=== PATIENT | female | born 1975 | race American Indian/Alaskan Native ===

== ENCOUNTER 2017-07-24 20:17 | Emergency (ER) | payer OTHER ==
[2017-07-24 21:20] LABS: Basophils % (Auto) 0.5 % (0.0-1.8); Hematocrit 33.4 % (30.3-42.9); Hemoglobin 11.1 gm/dl (10.1-14.3); Mean Corpuscular HGB Conc 33 % (30-34); Mean Corpuscular Hemoglobin 30 pg (28-32); Mean Corpuscular Volume 89 fl (79-97); Platelet Count 227 K/mm3 (140-440); Red Blood Count 3.77 M/mm3 (3.65-5.03); Red Cell Distribution Width 14.6 % (13.2-15.2); White Blood Count 6.1 K/mm3 (4.5-11.0)
[2017-07-24 21:37] LABS: Alanine Aminotransferase 12 units/L (7-56); Albumin/Globulin Ratio 1.2 %; Alkaline Phosphatase 45 units/L (35-129); Anion Gap 18 mmol/L; BUN/Creatinine Ratio 13; Blood Urea Nitrogen 9 mg/dL (7-17); Calcium 8.6 mg/dL (8.4-10.2); Carbon Dioxide 23 mmol/L (22-30); Glucose 98 mg/dL (65-100); Potassium 3.4 mmol/L (3.6-5.0); Sodium 140 mmol/L (137-145); Total Protein 7.3 g/dL (6.3-8.2)
[2017-07-25] MEDS ORDERED: K-DUR PO ONE (01:59)
[2017-07-25] MEDS ORDERED: TORADOL IM ONE (01:59)
[2017-07-25 02:13] VITALS: BP 142/85
--- NOTE | 2017-07-25 02:26 | Emergency Department Report ---
ED Female HPI - General Chief complaint: Vaginal Bleeding Stated complaint: VAG BLEED Time Seen by Provider: 07/25/17 01:45 Source: patient Mode of arrival: Ambulatory Limitations: No Limitations - History of Present Illness Initial comments: 42-year-old female with a past medical history previous cholecystectomy presents to the hospital pending the vaginal bleeding 2 months that worsened today. Patient has had vaginal bleeding daily for the past 3 months and saw her [facility] who suggested it was stress-related. She has not had any imaging done. At 3 PM vaginal bleeding worsened with large clots. Patient explored the patient and greater than 10 pads. She is complaining of significant suprapubic cramping pain that radiated to the back. Pain has since improved. Bleeding has slowed down some. Patient felt lightheaded earlier but that has since resolved. No reports of syncope. Patient states she has a previous history of hypertension but all commands 4 years since she lost weight. Her [facility] doctor is associated with [facility] - Related Data Previous Rx's Medication Instructions Recorded Last Taken Type Ibuprofen [Motrin] 800 mg PO Q8HR PRN #30 tablet 07/25/17 Unknown Rx medroxyPROGESTERone ACETATE 10 mg PO QDAY #7 tablet 07/25/17 Unknown Rx [Provera] Allergies Allergy/AdvReac Type Severity Reaction Status Date / Time amoxicillin Allergy Swelling Verified 07/24/17 20:39 codeine Allergy Vomiting Verified 07/24/17 20:39 ED Review of Systems ROS: Stated complaint: VAG BLEED Other details as noted in HPI Comment: All other systems reviewed and negative Other: Constitutional: No fevers chills Eyes: No eye pain visual changes ENT: No ear pain or throat pain Neck: Denies pain Respiratory: Denies cough wheezing shortness of breath Cardiovascular: Denies chest pain, palpitations, syncope GI: as per hpi : Denies dysuria Musculoskeletal: Denies back pain, joint swelling Skin: Denies rash, lesions, erythema Neurologic: Denies headache, numbness, weakness Psychiatric: Denies suicidal ideation, hallucinations ED Past Medical Hx - Past Medical History Previous Medical History?: No - Surgical History Past Surgical History?: Yes Hx Cholecystectomy: Yes Additional Surgical History: C-Sec x 2 - Social History Smoking Status: Never Smoker Substance Use Type: None - Medications Home Medications: Home Medications Medication Instructions Recorded Confirmed Last Taken Type Ibuprofen [Motrin] 800 mg PO Q8HR PRN #30 tablet 07/25/17 Unknown Rx medroxyPROGESTERone ACETATE 10 mg PO QDAY #7 tablet 07/25/17 Unknown Rx [Provera] ED Physical Exam - General Limitations: No Limitations - Other Other exam information: General: No limitations, patient is alert in no acute distress Head exam: Atraumatic, normocephalic Eyes exam: Normal appearance, pink conjunctivae ENT: Moist mucous membrane, normal oropharynx Neck exam: Normal inspection, full range of motion, no meningismus nontender Respiratory exam: Clear to auscultation bilateral, no wheezes, rales, crackles Cardiovascular: Normal rate and rhythm, normal heart sounds Abdomen: Soft, nondistended, mild suprapubic tenderness, no rebound or guarding Extremity: Full range of motion normal inspection no deformity Back: Normal Inspection, full range of motion, no tenderness Neurologic: Alert, oriented x3, cranial nerves intact, no motor or sensory deficit Psychiatric: normal affect, normal mood Skin: Warm, dry, intact ED Course Vital Signs 07/24/17 07/25/17 07/25/17 20:42 02:02 02:24 Temperature 98.6 F 98.2 F Pulse Rate 109 H 69 Respiratory 20 8 L Rate Blood Pressure 142/85 Blood Pressure 167/108 142/85 [Right] O2 Sat by Pulse 100 95 99 Oximetry 07/25/17 02:25 Temperature Pulse Rate Respiratory 8 L Rate Blood Pressure Blood Pressure [Right] O2 Sat by Pulse 99 Oximetry - Reevaluation(s) Reevaluation #1: 07/25/17 02:26 Heart rate and blood pressure improved spontaneously 07/25/17 03:30 Patient received by mouth potassium for mild hypokalemia ED Medical Decision Making - Lab Data Result diagrams: 07/24/17 20:53 07/24/17 21:01 Lab Results 07/24/17 07/24/17 07/24/17 Range/Units 20:53 20:53 21:00 WBC 6.1 (4.5-11.0) K/mm3 RBC 3.77 (3.65-5.03) M/mm3 Hgb 11.1 (10.1-14.3) gm/dl Hct 33.4 (30.3-42.9) % MCV 89 (79-97) fl MCH 30 (28-32) pg MCHC 33 (30-34) % RDW 14.6 (13.2-15.2) % Plt Count 227 (140-440) K/mm3 Lymph % (Auto) 35.7 H (13.4-35.0) % [place] % (Auto) 6.4 (0.0-7.3) % Eos % (Auto) 3.0 (0.0-4.3) % Baso % (Auto) 0.5 (0.0-1.8) % Lymph # 2.2 (1.2-5.4) K/mm3 Len[place] # 0.4 (0.0-0.8) K/mm3 Eos # 0.2 (0.0-0.4) K/mm3 Baso # 0.0 (0.0-0.1) K/mm3 Seg Neutrophils % 54.4 (40.0-70.0) % Seg Neutrophils # 3.3 (1.8-7.7) K/mm3 Sodium (137-145) mmol/L Potassium (3.6-5.0) mmol/L Chloride (98-107) mmol/L Carbon Dioxide (22-30) mmol/L Anion Gap mmol/L BUN (7-17) mg/dL Creatinine (0.7-1.2) mg/dL Estimated GFR ml/min BUN/Creatinine Ratio % Glucose (65-100) mg/dL Calcium (8.4-10.2) mg/dL Total Bilirubin (0.1-1.2) mg/dL AST (5-40) units/L ALT (7-56) units/L Alkaline Phosphatase (35-129) units/L Total Protein (6.3-8.2) g/dL Albumin (3.9-5) g/dL Albumin/Globulin Ratio % HCG, Quant < 2 (0-4) mIU/mL Blood Type A POSITIVE Antibody Screen Negative 07/24/17 Range/Units 21:01 WBC (4.5-11.0) K/mm3 RBC (3.65-5.03) M/mm3 Hgb (10.1-14.3) gm/dl Hct (30.3-42.9) % MCV (79-97) fl MCH (28-32) pg MCHC (30-34) % RDW (13.2-15.2) % Plt Count (140-440) K/mm3 Lymph % (Auto) (13.4-35.0) % [place] % (Auto) (0.0-7.3) % Eos % (Auto) (0.0-4.3) % Baso % (Auto) (0.0-1.8) % Lymph # (1.2-5.4) K/mm3 [place] # (0.0-0.8) K/mm3 Eos # (0.0-0.4) K/mm3 Baso # (0.0-0.1) K/mm3 Seg Neutrophils % (40.0-70.0) % Seg Neutrophils # (1.8-7.7) K/mm3 Sodium 140 (137-145) mmol/L Potassium 3.4 L (3.6-5.0) mmol/L Chloride 102.0 (98-107) mmol/L Carbon Dioxide 23 (22-30) mmol/L Anion Gap 18 mmol/L BUN 9 (7-17) mg/dL Creatinine 0.7 (0.7-1.2) mg/dL Estimated GFR > 60 ml/min BUN/Creatinine Ratio 13 % Glucose 98 (65-100) mg/dL Calcium 8.6 (8.4-10.2) mg/dL Total Bilirubin 0.30 (0.1-1.2) mg/dL AST 12 (5-40) units/L ALT 12 (7-56) units/L Alkaline Phosphatase 45 (35-129) units/L Total Protein 7.3 (6.3-8.2) g/dL Albumin 4.0 (3.9-5) g/dL Albumin/Globulin Ratio 1.2 % HCG, Quant (0-4) mIU/mL Blood Type Antibody Screen - Radiology Data Radiology results: report reviewed Transvaginal/pelvic ultrasound, anteverted uterus with normal-appearing 9.5 mm thickness of the endometrium. Indeterminate complex mass in the lower uterine segment with increased vascularity and cystic changes. Atypical fibroid with cystic degeneration versus primary neoplasm is the differential. MRI recommended. Normal right ovary. Left ovary and I see - Medical Decision Making Patient presenting with heavy vaginal bleeding and bleeding for several months. Will be placed on Provera for several days. Ultrasound suggestive of fibroid cannot rule out neoplasm as well. Patient would need close outpatient evaluate UAs with her [facility]OLOG[facility]. Pain medicine will also be prescribed. Copy of ultrasound will be provided to patient Patient does not require blood transfusion or emergent admission at this time - Differential Diagnosis fibroids, /miscarriage, anemia, DUB Critical Care Time: No Critical care attestation.: If time is entered above; I have spent that time in minutes in the direct care of this critically ill patient, excluding procedure time. ED Disposition Clinical Impression: Menometrorrhagia, Uterine mass, Fibroid Disposition: TO HOME OR SELFCARE Is pt being admited?: No Does the pt Need Aspirin: No Condition: Stable Instructions: Uterine Fibroids (ED), Menorrhagia (ED) Additional Instructions: It is very important that you follow up with your [facility] doctor for further evaluation. Ultrasound shows that you may have a fibroid however, can't rule out a neoplasm/cancer mass without further evaluation. Take the medication as prescribed. Call your doctor tomorrow to schedule close follow-up. Take a copy of the ultrasound provided to your follow-up visit. Prescriptions: Ibuprofen [Motrin] 800 mg PO Q8HR PRN #30 tablet PRN Reason: Pain medroxyPROGESTERone ACETATE [Provera] 10 mg PO QDAY #7 tablet Referrals: [facility] [Provider Group] - [place] Time of Disposition: 03:35
--- NOTE | 2017-07-25 03:12 | Ultrasound Report ---
FINAL REPORT EXAM: US TRANSVAGINAL HISTORY: menometrorrhagia TECHNIQUE: Transvaginal imaging was obtained the pelvis including Doppler interrogation of the uterus and right ovary. FINDINGS: The uterus is anteverted measuring 12.3 cm x 6.7 cm x 6.9 cm. The endometrial thickness is 9.5 millimeters. In the lower uterine segment there is a complex mass measuring 4.4 cm x 3.4 cm x 3.7 cm. Within this solid mass is a septated cyst. There is increased vascularity to this lesion. With this represents an atypical fibroid with cystic degeneration versus a primary neoplasm is uncertain. There is additional fibroid in the anterior wall of the body of the uterus measuring 1.6 cm in diameter. Free fluid is not seen. The right ovary is normal size contour blood flow and echotexture measuring 2.9 cm x 1.8 cm x 2.9 cm. The left ovary is not adequately seen because of body habitus. IMPRESSION: Anteverted uterus with normal-appearing 9.5 millimeter thickness endometrium. Indeterminate complex mass in the lower uterine segment with increased vascularity and cystic changes. Whether this represents an atypical fibroid with cystic degeneration versus primary neoplasm is uncertain. MRI is recommended for further evaluation. Normal appearing right ovary. The left ovary is not seen.
--- NOTE | 2017-07-25 03:21 | Ultrasound Report ---
FINAL REPORT EXAM: US PELVIC COMPLETE HISTORY: menometrorrhagia TECHNIQUE: Transabdominal imaging was obtained of the pelvis including Doppler interrogation of the uterus and right ovary. FINDINGS: The uterus is anteverted measuring 12.3 cm x 6.7 cm x 6.9 cm. The endometrium is homogeneous and measures 9.5 millimeters in thickness. In the lower uterine segment there is a complex predominantly solid mass with increased vascularity measuring 4.4 cm x 3.4 cm x 3.7 cm. There is a septated cyst associated with this. Whether this represents an atypical fibroid with cystic degeneration versus a primary neoplasm is uncertain. The myometrium otherwise reveals a 1.6 cm hypoechoic lesion in the anterior wall of the body of the uterus compatible with fibroid. Free fluid is not seen. The right ovary is normal size contour blood flow and echotexture measuring 2.9 cm x 1.8 cm x 2.9 cm. Left ovary is not adequately seen for evaluation. IMPRESSION: Homogeneous normal-appearing endometrium measuring 9.5 millimeters. Indeterminate vascular lesion in the lower uterine segment with measurements as described. Whether this represents an atypical fibroid versus primary neoplasm is uncertain. MRI is recommended for better evaluation. Small fibroid in the anterior wall of the body of the uterus.
[2017-07-25 03:32] LABS: Anion Gap 16 mmol/L; BUN/Creatinine Ratio 10; Blood Urea Nitrogen 8 mg/dL (7-17); Calcium 8.6 mg/dL (8.4-10.2); Carbon Dioxide 24 mmol/L (22-30); Chloride 103.6 mmol/L (98-107); Glucose 94 mg/dL (65-100); Potassium 3.2 mmol/L (3.6-5.0); Sodium 140 mmol/L (137-145)
== END 2017-07-25 05:00 | disposition home or self-care (01) ==
LOC: ED 20:17
DX: N92.1 Excessive and frequent menstruation with irregular cycle (principal); D25.9 Leiomyoma of uterus, unspecified; Z90.49 Acquired absence of other specified parts of digestive tract; Z88.1 Allergy status to other antibiotic agents; Z88.5 Allergy status to narcotic agent
CPT/HCPCS: 36415; 76830; 76856; 80048; 80053; 84702; 85025; 86850; 86900; 86901; 96372; 99284; J1885

== ENCOUNTER 2018-02-19 02:16 | Emergency (ER) | payer SELFPAY ==
[2018-02-19 03:20] LABS: Basophils % (Auto) 0.6 % (0.0-1.8); Eosinophils # (Auto) 0.2 K/mm3 (0.0-0.4); Eosinophils % (Auto) 2.9 % (0.0-4.3); Hematocrit 27.3 % (30.3-42.9); Hemoglobin 8.5 gm/dl (10.1-14.3); Lymphocytes # (Auto) 1.6 K/mm3 (1.2-5.4); Lymphocytes % (Auto) 22.4 % (13.4-35.0); Mean Corpuscular HGB Conc 31 % (30-34); Mean Corpuscular Volume 74 fl (79-97); Monocytes # (Auto) 0.5 K/mm3 (0.0-0.8); Monocytes % (Auto) 7.1 % (0.0-7.3); Platelet Count 257 K/mm3 (140-440); Red Blood Count 3.72 M/mm3 (3.65-5.03)
[2018-02-19 03:35] LABS: Mean Corpuscular Hemoglobin 23 pg (28-32)
[2018-02-19 04:48] LABS: Bacteria,Urine 1+ /HPF (Negative); Bilirubin,Urine NEG (Negative); Blood,Urine MOD (Negative); Color,Urine Yellow (Yellow); Mucus,Urine 3+ /HPF; Protein,Urine <15 mg/dL mg/dL (Negative); Urobilinogen,Urine < 2.0 mg/dL (<2.0)
[2018-02-19 04:50] LABS: HCG Qualitative,Urine Negative (Negative)
--- NOTE | 2018-02-19 10:51 | Emergency Department Report ---
ED Female HPI - General Chief complaint: Urogenital-Female Stated complaint: VAGINAL PAIN Time Seen by Provider: 02/19/18 10:50 Source: patient Mode of arrival: Ambulatory Limitations: No Limitations - History of Present Illness Initial comments: This is 42-year-old female here reports that she is going to bathroom and feels like her uterus is falling out. States that she pushed in. Patient reports that she has vaginal bleeding in and it is heavy and chronic. She is requested [employer]. She says she has large amount of blood clot from her. Pain is 9 on the 10th pelvic area. No medication taken. Patient reports this feels like she has a urinary tract infection from previous infection. She denies any shortness of breath or chest pain. Denies any nausea or vomiting. She says she has a history of uterine fibroids. Denies any fever or chills or back pain. She reports burning and urination. Pelvic pain is crampy and intermittent. No alleviating or exacerbating factors MD Complaint: vaginal bleeding, dysuria, pelvic pain Onset/Timin -: days(s) Location: suprapubic Radiation: non-radiating Severity: severe Quality: cramping Consistency: intermittent Improves with: none Worsens with: none Are you Now?: No Associated Symptoms: vaginal bleeding, abdominal pain, dysuria. denies: vaginal discharge, nausea/vomiting, fever/chills, headaches, loss of appetite, hematuria, rash, shortness of breath, syncope, weakness, other - Related Data Sexually active: No Previous Rx's Medication Instructions Recorded Last Taken Type Ibuprofen [Motrin] 800 mg PO Q8HR PRN #30 tablet 07/25/17 Unknown Rx medroxyPROGESTERone ACETATE 10 mg PO QDAY #7 tablet 07/25/17 Unknown Rx [Provera] Ferrous Sulfate [Feosol 325 MG tab] 325 mg PO BID 30 Days #60 tablet 02/19/18 Unknown Rx Naproxen [Naprosyn] 500 mg PO BID PRN #20 tablet 02/19/18 Unknown Rx Sulfamethoxazole/Trimethoprim 1 each PO BID 10 Days #20 tablet 02/19/18 Unknown Rx [Bactrim DS TAB] Allergies Allergy/AdvReac Type Severity Reaction Status Date / Time amoxicillin Allergy Swelling Verified 07/24/17 20:39 codeine Allergy Vomiting Verified 07/24/17 20:39 ED Review of Systems ROS: Stated complaint: VAGINAL PAIN Other details as noted in HPI Constitutional: denies: chills, fever ENT: denies: ear pain, throat pain, congestion Respiratory: denies: cough, shortness of breath, SOB with exertion, SOB at rest , stridor, wheezing Cardiovascular: denies: chest pain, palpitations, edema, syncope Gastrointestinal: abdominal pain. denies: nausea, vomiting, diarrhea, constipation, hematemesis, melena, hematochezia Genitourinary: dysuria, hematuria, abnormal menses. denies: urgency, frequency , discharge, dyspareunia Musculoskeletal: denies: back pain, joint swelling, arthralgia, myalgia Skin: denies: rash, lesions Neurological: denies: headache, weakness ED Past Medical Hx - Past Medical History Previous Medical History?: Yes Hx Asthma: Yes Additional medical history: fibroids - Surgical History Past Surgical History?: Yes Hx Cholecystectomy: Yes Additional Surgical History: C-Sec x 2 - Family History Family history: hypertension - Social History Smoking Status: Current Every Day Smoker Substance Use Type: None - Medications Home Medications: Home Medications Medication Instructions Recorded Confirmed Last Taken Type Ibuprofen [Motrin] 800 mg PO Q8HR PRN #30 tablet 07/25/17 Unknown Rx medroxyPROGESTERone ACETATE 10 mg PO QDAY #7 tablet 07/25/17 Unknown Rx [Provera] Ferrous Sulfate [Feosol 325 MG tab] 325 mg PO BID 30 Days #60 tablet 02/19/18 Unknown Rx Naproxen [Naprosyn] 500 mg PO BID PRN #20 tablet 02/19/18 Unknown Rx Sulfamethoxazole/Trimethoprim 1 each PO BID 10 Days #20 tablet 02/19/18 Unknown Rx [Bactrim DS TAB] ED Physical Exam - General Limitations: No Limitations General appearance: alert, in no apparent distress - Head Head exam: Present: atraumatic, normocephalic, normal inspection - Eye Eye exam: Present: normal appearance, PERRL, EOMI Pupils: Present: normal accommodation - ENT ENT exam: Present: normal exam, normal orophraynx, mucous membranes moist, normal external ear exam - Neck Neck exam: Present: normal inspection, full ROM. Absent: tenderness, lymphadenopathy - Respiratory Respiratory exam: Present: normal lung sounds bilaterally. Absent: respiratory distress, chest wall tenderness - Cardiovascular Cardiovascular Exam: Present: regular rate, normal rhythm, normal heart sounds. Absent: systolic murmur, diastolic murmur - GI/Abdominal GI/Abdominal exam: Present: soft, normal bowel sounds. Absent: distended, guarding, rigid, organomegaly, mass, hernia - Extremities Exam Extremities exam: Present: normal inspection, full ROM, normal capillary refill , other (i think, cyanosis or edema. Positive pulses all extremities and no neurovascular compromise). Absent: tenderness, pedal edema, joint swelling, calf tenderness - Back Exam Back exam: Present: normal inspection, full ROM, other (ambulates without any difficulties). Absent: tenderness, CVA tenderness (L), muscle spasm, paraspinal tenderness, vertebral tenderness, rash noted - Neurological Exam Neurological exam: Present: alert, oriented X3, normal gait - Psychiatric Psychiatric exam: Present: normal affect, normal mood - Skin Skin exam: Present: warm, dry, intact, normal color. Absent: rash ED Course Vital Signs 02/19/18 02/19/18 02:34 12:13 Temperature 98.1 F Pulse Rate 89 82 Respiratory 16 18 Rate Blood Pressure 124/90 Blood Pressure 124/88 [Left] O2 Sat by Pulse 100 100 Oximetry - Reevaluation(s) Reevaluation #1: 02/19/18 11:50 Patient had uneventful ED stay. ED Medical Decision Making - Lab Data Result diagrams: 02/19/18 03:03 Lab Results 02/19/18 02/19/18 Range/Units 03:03 04:00 WBC 7.0 (4.5-11.0) K/mm3 RBC 3.72 (3.65-5.03) M/mm3 Hgb 8.5 L (10.1-14.3) gm/dl Hct 27.3 L (30.3-42.9) % MCV 74 L (79-97) fl MCH 23 L (28-32) pg MCHC 31 (30-34) % RDW 17.0 H (13.2-15.2) % Plt Count 257 (140-440) K/mm3 Lymph % (Auto) 22.4 (13.4-35.0) % [place] % (Auto) 7.1 (0.0-7.3) % Eos % (Auto) 2.9 (0.0-4.3) % Baso % (Auto) 0.6 (0.0-1.8) % Lymph # 1.6 (1.2-5.4) K/mm3 [place]hing # 0.5 (0.0-0.8) K/mm3 Eos # 0.2 (0.0-0.4) K/mm3 Baso # 0.0 (0.0-0.1) K/mm3 Seg Neutrophils % 67.0 (40.0-70.0) % Seg Neutrophils # 4.7 (1.8-7.7) K/mm3 Urine Color Yellow (Yellow) Urine Turbidity Clear (Clear) Urine pH 5.0 (5.0-7.0) Ur Specific Nora 1.021 (1.003-1.030) Urine Protein <15 mg/dl (Negative) mg/dL Urine Glucose (UA) Neg (Negative) mg/dL Urine Ketones Neg (Negative) mg/dL Urine Blood Mod (Negative) Urine Nitrite Neg (Negative) Urine Bilirubin Neg (Negative) Urine Urobilinogen < 2.0 (<2.0) mg/dL Ur Leukocyte Esterase Mod (Negative) Urine WBC (Auto) 14.0 H (0.0-6.0) /HPF Urine RBC (Auto) 57.0 (0.0-6.0) /HPF U Epithel Cells (Auto) 1.0 (0-13.0) /HPF Urine Bacteria (Auto) 1+ (Negative) /HPF Urine Mucus 3+ /HPF Urine HCG, Qual Negative (Negative) Urine culture sent and pending - Medical Decision Making ED course: This is a 42-year-old female here reports that she is having urinary burning in and pressure. She says she feels like her uterus is falling out and she has to push it back in. He has no [employer] so refer her to [facility] Dr. Ina Tsang. Patient's reporting that she has her menstrual cycle pretty much throughout the month due to uterine fibroids and she bleeds heavily. She is not having any shortness of breath or chest pain or feeling tired. She states that she's had this in the past and was seen by a doctor but right now she doesn't have anyone to follow up with. Patient was examined and her exam is normal to include her back and abdominal exam. Urinalysis reflects that she has urinary tract infection and test is negative. She has moderate amount of leukocyte Estrace, moderate amount of blood, positive white count and 1+ bacteria. Her H&H is 8.5 and 27.3. WBC is normal. Patient has chronic bleed in and chronic anemia. She is with acute cystitis with hematuria, dysuria, menometrorrhagia with chronic anemia. Patient will be referred to [facility] at [facility] and also to [facility] primary care clinic. She voiced understanding of diagnosis and treatment plan. She was also educated on the labs. Pt discharged home on diagnosis , plan, medication and need to follow-up at [facility] primary care and [employer] and she voiced understanding Pt discharged home in stable condition with prescription for Bactrim BS,Ferrous sulfate. Patient discharged home in stable condition. Her vital signs are stable she is afebrile and she understand that she needs to follow-up with [facility]/ [facility] regarding anemia and also fibroids and metromenorrhagia. Critical care attestation.: If time is entered above; I have spent that time in minutes in the direct care of this critically ill patient, excluding procedure time. ED Disposition Clinical Impression: Acute cystitis with hematuria, Pelvic pain, Menometrorrhagia, Dysuria, Anemia, chronic disease Disposition: - TO HOME OR SELFCARE Is pt being admited?: No Does the pt Need Aspirin: No Condition: Stable Instructions: Urinary Tract Infection in Women (ED), Iron Rich Diet (ED), Dysuria (ED), Menorrhagia (ED), Anemia (ED) Additional Instructions: Please follow up with [facility] regarding [employer] and primary care. I'll tomorrow to schedule an appointment. Your blood work checked that he have anemia and you need to start taking ferrous sulfate and please take this medication with food as it can cause nausea. IncreaseYou fluid intake to 2-3 L of water daily Take Bactrim DS for urinary tract infection If you have increasing vaginal bleeding with clots and here feeling tired, shortness of breath or chest pain, please return to the emergency room. Prescriptions: Ferrous Sulfate [Feosol 325 MG tab] 325 mg PO BID 30 Days #60 tablet Naproxen [Naprosyn] 500 mg PO BID PRN #20 tablet PRN Reason: pelvic cramping and pain Sulfamethoxazole/Trimethoprim [Bactrim DS TAB] 1 each PO BID 10 Days #20 tablet Referrals: [facility] [Outside] - 02/21/18 Forms: Work/School Release Form(ED)
[2018-02-19 12:14] VITALS: BP 124/88
== END 2018-02-19 12:13 | disposition home or self-care (01) ==
LOC: ED 02:16
DX: N30.01 Acute cystitis with hematuria (principal); N92.1 Excessive and frequent menstruation with irregular cycle; D64.9 Anemia, unspecified; J45.909 Unspecified asthma, uncomplicated; F17.200 Nicotine dependence, unspecified, uncomplicated; Z90.49 Acquired absence of other specified parts of digestive tract; Z88.6 Allergy status to analgesic agent; Z88.1 Allergy status to other antibiotic agents
CPT/HCPCS: 36415; 81001; 81025; 85025; 87086; 99283